=== PATIENT | female | born 1985 | race Caucasian/White ===

== ENCOUNTER 2018-06-30 15:24 | Emergency (ER) | payer OTHER ==
[2018-06-30] MEDS ORDERED: PROMETHAZINE/DM (CUP) PO (16:30)
[2018-06-30] MEDS: IBUPROFEN 600 MG TAB PO (16:35)
[2018-06-30] MEDS: PROMETHAZINE/DM (CUP) PO (16:35)
== END 2018-06-30 18:27 | disposition home or self-care (01) ==
LOC: FTE 15:24
DX: J20.9 Acute bronchitis, unspecified (principal); B34.9 Viral infection, unspecified; F17.210 Nicotine dependence, cigarettes, uncomplicated
CPT/HCPCS: 71045; 81025; 87400; 99284-25